=== PATIENT | female | born 1985 | race Caucasian/White ===

== ENCOUNTER → 2018-08-16 17:14 | Emergency (ER) | payer SELFPAY ==
--- NOTE | 2018-08-16 17:29 | EDM.PDOC ---
ED HPI GENERAL MEDICAL PROBLEM - General Chief Complaint: Abdominal Pain Stated Complaint: FELL ON ICE RIB PAIN - History of Present Illness Treatments BUSINESS LIBRARIAN: Reports: Other (see below) Other Treatments BUSINESS LIBRARIAN: tylenol and motrin Left Abdomen Pain Score (Numeric/FACES): 8 - Related Data Allergies Allergy/AdvReac Type Severity Reaction Status Date / Time Penicillins Allergy Rash Verified 08/16/18 17:28 Departure - Departure Disposition: Left Without Being Seen 07 - Discharge Information Referrals: Ximena Maynard NP [Primary Care Provider] - Forms: ED Department Discharge
== END | disposition left against medical advice (07) ==
LOC: JD.ED 17:14
DX: Z53.21 Procedure and treatment not carried out due to patient leaving prior to being seen by health care provider (principal)